=== PATIENT | male | born 1935 | race Two or more races ===

== ENCOUNTER 2024-04-23 20:24 | Emergency (ER) | payer OTHER ==
[~2024-04-23] VITALS: Ht 188 cm; Wt 81.6 kg
[2024-04-23] MEDS ORDERED: PANTOPRAZOLE SO40 MG PO (20:45)
[2024-04-23] MEDS ORDERED: CLONAZEPAM1 MG PO (20:45)
[2024-04-23] MEDS ORDERED: BUPROPION HCL200 MG PO (20:45)
[2024-04-23] MEDS ORDERED: DONEPEZIL HCL23 MG PO (20:45)
[2024-04-23] MEDS ORDERED: CARBIDOPA-LEVO1 EA10 PO (20:45)
[2024-04-24] MEDS ORDERED: KETOROLAC TROMETHAMINE 60 MG VIAL IM STA (05:25)
[2024-04-24] MEDS ORDERED: TETANUS & DIPHTHERIA TOX,ADULT 0.5 ML VIAL IM STA (05:26)
== END 2024-04-24 07:12 | disposition home or self-care (01) ==
LOC: ER 20:26
DX: S02.2XXA Fracture of nasal bones, initial encounter for closed fracture (principal); W18.39XA Other fall on same level, initial encounter; Y93.89 Activity, other specified; Y92.018 Other place in single-family (private) house as the place of occurrence of the external cause; S20.219A Contusion of unspecified front wall of thorax, initial encounter; S00.81XA Abrasion of other part of head, initial encounter
CPT/HCPCS: 70160; 71045; 71110; 72040; 96372; 99283; J1885